=== PATIENT | male | born 1940 | race Caucasian/White ===

== ENCOUNTER → 2017-03-27 | Outpatient (CLI) | payer MEDICARE, BC ==
[2016-09-27 15:00] VITALS: BP 93/58
[~2017-03-27] MED LIST: ALEN70TA5 PO; ASCO500T3 PO; ATOR20TA58 PO; CRAN500C6 PO; GLUC1TAB69 PO; MULT-317 PO; OMEP20CA9 PO
--- NOTE | 2017-03-28 15:51 | KCIC ---
EXAM: MRI ABDOMEN WITHOUT CONTRAST. HISTORY: Generalized abdominal pain. Change in bowel habits. TECHNIQUE: MRI of the abdomen was performed without intravenous contrast. COMPARISON: CT September 23, 2016. FINDINGS: Liver: There is no significant steatosis. There are a few subcentimeter hepatic cysts. There are no suspicious hepatic lesions without contrast. Biliary tree: The gallbladder is surgically absent. The common duct is not dilated at 6 mm. The intrahepatic biliary tree is mildly prominent status post cholecystectomy. There are no suspicious pancreatic parenchymal lesions. The pancreatic duct is not dilated. Other findings: There are small renal cysts bilaterally. The adrenal glands and spleen are unremarkable. There is a mild lumbar dextroscoliosis. Postsurgical changes are noted along the lower anterior abdominal wall. IMPRESSION: 1. No cause for abdominal pain is identified. Mild intrahepatic biliary prominence can be seen status post cholecystectomy. Correlate for cholestasis to assess significance. Electronically signed by: Jose Giraldo MD (03/28/2017 3:48 PM) [id number]
== END | disposition home or self-care (01) ==
LOC: KCIC MRI 12:30
PROVIDERS: ATTEND Family Medicine
DX: R10.84 Generalized abdominal pain (principal); R19.4 Change in bowel habit; Z90.49 Acquired absence of other specified parts of digestive tract
CPT/HCPCS: 74181